=== PATIENT | male | born 1965 | race Caucasian/White ===

== ENCOUNTER 2016-05-05 10:02 | Day surgery (SDC) | payer OTHER ==
--- NOTE | ~2016-05-05 | EGD ---
EGD REPORT [facility] [address] [address] NAME: APURVA BYRNES : 63 STATUS : REG [facility] [place] PAT#: [id number] AGE: 50 ADM/REG DATE : 05/05/16 MR#: [id number] REPORT SERV DATE: 05/05/16 DICTATED BY: JP CORONADO DATE: 05/05/16 REPORT STATUS : Draft [facility]ANS[facility]IBED BY: [facility] DATE: 05/05/16 [facility] Center Patient Name: Apurva Byrnes Date of : 1965 Attending MD: JP CORONADO MD Procedure Date No Time: 05/05/2016 Procedure: Colonoscopy Indications: Screening for colorectal malignant neoplasm, This is the patient's first colonoscopy Referring MD: TARA PAYNE MD Medicines: Propofol per Anesthesia Complications: No immediate complications. Estimated blood loss: Minimal. Procedure: Pre-Anesthesia Assessment: - After reviewing the risks and benefits, the patient was deemed in satisfactory condition to undergo the procedure. - Prior to the procedure, a History and Physical was performed, and patient medications and allergies were reviewed. The patient's tolerance of previous anesthesia was also reviewed. The risks and benefits of the procedure and the sedation options and risks were discussed with the patient. All questions were answered, and informed consent was obtained. Prior Anticoagulants: The patient has taken no previous anticoagulant or antiplatelet agents. ASA Grade Assessment: II - A patient with mild systemic disease. After reviewing the risks and benefits, the patient was deemed in satisfactory condition to undergo the procedure. After I obtained informed consent, the scope was passed under direct vision. Throughout the procedure, the patient's blood pressure, pulse, and oxygen saturations were monitored continuously. The CF [id number] was introduced through the anus and advanced to the cecum, identified by appendiceal orifice and ileocecal valve. The colonoscopy was performed without difficulty. The ileocecal valve and appendiceal orifice were photographed. The patient tolerated the procedure well. The quality of the bowel preparation was excellent. The bowel preparation used was split dose SUPREP. Scope withdrawal time was greater than 8 minutes. Findings: The perianal and digital rectal examinations were normal. Pertinent negatives include normal sphincter tone. EGD REPORT [address] [place]. [address] NAME: APURVA BYRNES : [birth year] STATUS : REG [facility]#: [id number] AGE: 50 ADM/REG DATE : 05/05/16 MR#: [id number] REPORT SERV DATE: 05/05/16 DICTATED BY: JP CORONADO DATE: 05/05/16 REPORT STATUS : Draft TRANSCRIBED BY: [facility] DATE: 05/05/16 A few small-mouthed diverticula were found in the sigmoid colon. A segmental area of mildly erythematous mucosa was found in the distal rectum. This was biopsied with a cold forceps for histology. Estimated blood loss was minimal. The exam was otherwise without abnormality. Impression: - Mild diverticulosis in the sigmoid colon. - Erythematous mucosa in the distal rectum. Biopsied. - The examination was otherwise normal. Recommendation: - Discharge patient to home (ambulatory). - Return to previous diet. - Continue present medications. - Await pathology results. - Collect Hemoccults on three spontaneously passed stools annually. - Repeat colonoscopy in 10 years for screening purposes. - Patient has a contact number available for emergencies. The signs and symptoms of potential delayed complications were discussed with the patient. Return to normal activities tomorrow. Written discharge instructions were provided to the patient. Procedure Code(s): --- Professional --- 53240, Colonoscopy, flexible, proximal to splenic flexure; with biopsy, single or multiple Diagnosis Code(s): --- Professional --- K57.30, Diverticulosis of large intestine without perforation or abscess without bleeding K62.9, Disease of anus and rectum, unspecified Z12.11, Encounter for screening for malignant neoplasm of colon CPT copyright 2013 [employer]. All rights reserved. The codes documented in this report are preliminary and upon organ pipe finisher review may be revised to meet current compliance requirements. JP CORONADO MD 05/05/2016 11:42 AM This report has been signed electronically. Number of Addenda: 0 Note Initiated On: 05/05/2016 11:09 AM EGD REPORT [facility] [address] [address] NAME: APURVA BYRNES : [birth year] STATUS : REG [facility] [place] PAT#: [id number] AGE: 50 ADM/REG DATE : 05/05/16 MR#: [id number] REPORT SERV DATE: 05/05/16 DICTATED BY: JP CORONADO DATE: 05/05/16 REPORT STATUS : Draft TRANSCRIBED BY: [employer] DATE: 05/05/16 Scope Withdrawal Time 0 hours 10 minutes 10 seconds [address] [id number]
[~2016-05-05 10:02] MED LIST: PT DENIES HOME MEDS
== END 2016-05-05 23:59 | disposition home or self-care (01) ==
LOC: DMU 10:02
PROVIDERS: Internal Medicine Gastroenterology
PROC: 0DBP8ZX Excision of Rectum, Via Natural or Artificial Opening Endoscopic, Diagnostic (ICD-10-PCS; principal; 2016-05-05 11:00)
DX: Z12.11 Encounter for screening for malignant neoplasm of colon (principal); K57.30 Diverticulosis of large intestine without perforation or abscess without bleeding; K62.9 Disease of anus and rectum, unspecified; Z85.528 Personal history of other malignant neoplasm of kidney
CPT/HCPCS: 88305